=== PATIENT | female | born 2000 | race Caucasian/White ===

== ENCOUNTER 2023-09-08 15:09 | Outpatient (CLI) | payer BC, SELFPAY | END 2023-09-08 15:10 | disposition home or self-care (01) | PROVIDERS: PCP Physician Assistant Medical; Visit Provider Physician Assistant Medical | DX: R53.83 Other fatigue (principal); Z13.29 Encounter for screening for other suspected endocrine disorder; Z13.228 Encounter for screening for other metabolic disorders; Z13.21 Encounter for screening for nutritional disorder | CPT/HCPCS: 80053; 82306; 84443 ==

== ENCOUNTER 2024-11-16 08:53 | Outpatient (CLI) | payer BC, SELFPAY ==
[2024-11-16 12:58] LABS: Chlamydia DNA Amplified* NOT DETECTED (No Detected); GC DNA Amplified* NOT DETECTED (No Detected)
== END 2024-11-16 08:54 | disposition home or self-care (01) ==
LOC: NFLDREF 08:54
PROVIDERS: PCP Physician Assistant Medical; Visit Provider Physician Assistant
DX: Z11.3 Encounter for screening for infections with a predominantly sexual mode of transmission (principal)
CPT/HCPCS: 87491; 87591

== ENCOUNTER 2025-07-09 11:01 | Outpatient (CLI) | payer BC, SELFPAY ==
--- NOTE | 2025-07-09 10:45 | CRLHL7_ITS ---
For Patients: As a result of the Century Cures Act, medical imaging exams and procedure reports are released immediately into your electronic medical record. You may view this report before your referring provider. If you have questions, please contact your health care provider. CLINICAL HISTORY: Pelvic Pain COMPARISON: None. TECHNIQUE: 2D davidson-scale ultrasound. In addition, color Doppler and spectral Doppler analysis was performed of the pelvis using a transabdominal and transvaginal approach. Transvaginal imaging performed to better visualize the endometrial stripe and ovaries. FINDINGS: The myometrium has a normal uniform echotexture. The uterus measures 7.3 x 3.0 x 4.5 cm. The endometrial lining appears normal and measures 3.5 mm in thickness. IUD is present in good position within the endometrial canal. The right ovary measures 3.8 x 2.4 x 2.9 cm in size and the left ovary measures 3.8 x 2.2 x 2.7 cm. The ovaries demonstrate normal arterial and venous blood flow on color Doppler and spectral Doppler analysis. There are no suspicious fluid collections within the cul-de-sac. IMPRESSION: Normal position of an IUD within the endometrial canal. Ovaries normal. Dictated by Husam Diaz MD @ 07/09/2025 11:56:45 AM (Electronically Signed)
== END 2025-07-09 11:02 | disposition home or self-care (01) ==
LOC: US 11:01
PROVIDERS: PCP Physician Assistant Medical; Visit Provider Physician Assistant
DX: R10.20 Pelvic and perineal pain unspecified side (principal)
CPT/HCPCS: 76830; 76856; 93976